=== PATIENT | female | born 1965 | race Caucasian/White ===

== ENCOUNTER → 2016-06-30 | Outpatient (CLI) | payer MEDICARE, MEDICAID ==
[~2016-06-30] MED LIST: ADIPEX-P37.5 MG PO; AMITRIPTYLINE 225 MG PO; BACLOFEN10 MG PO; CALCIUM WITH VI1 TAB PO; CYMBALTA30 MG PO; DULOXETINE 30MG30 MG FT; DULOXETINE 30MG30 MG PO; EFFEXOR XR150 MG PO; HYDROCODONE BIT1 T39 PO; HYDROCODONE-APA1 TA1 PO; KLONOPIN0.5 M1 PO; LAMICTAL100 MG PO; LAMOTRIGINE100 M1 PO; LEXAPRO 20 MG T20 MG PO; MOBIC15 MG PO; NORCO 325 MG-51 TAB PO; TRAMADOL 50MG T50 M1 PO; VENLAFAXINE HCL50 MG PO; VISTARIL25 MG PO; VITAMIN B125000 MCG PO; VOLTAREN50 MG PO; ZYRTEC10 M3 PO
[2016-06-30 09:36] LABS: HEMOGLOBIN 16.3 g/dL (12.2-16.2); LYMPH # 4.5 K/mm3 (0.7-4.5); LYMPH % 33.5 % (10-50.0)
[2016-06-30 10:01] LABS: BUN 13 mg/dL (7-18)
[2016-06-30 10:04] LABS: GFR (ESTIMATED) 76 ML/MIN (59-)
== END ==
LOC: LAB 09:07
PROVIDERS: Nurse Practitioner Family
DX: N39.0 Urinary tract infection, site not specified (principal)

== ENCOUNTER → 2017-01-27 | Outpatient (CLI) | payer MEDICARE, MEDICAID ==
[~2017-01-27] MED LIST changes: +BISOPROLOL FUMA1 TA3 PO; +FLECTOR1 EACH TD
--- NOTE | 2017-01-27 14:53 | RADIOLOGY REPORT PS360 ---
[id number] VIEWS HISTORY: CHRONIC RT SHOULDER PAIN ORDERING PHYSICIAN: CUCA MCLAUGHLIN MD PATIENT AGE: 51 years COMPARISON: None FINDINGS: No fracture or dislocation. No lytic or blastic change. There is normal mineralization. The joint spaces are well-preserved. No significant degenerative/arthritic changes. No erosive changes evident. No significant subacromial stenosis IMPRESSION: Negative right shoulder
== END ==
LOC: RAD 12:27
DX: M25.511 Pain in right shoulder (principal)

== ENCOUNTER → 2017-02-22 | Outpatient (CLI) | payer MEDICARE, MEDICAID ==
[2017-02-22 14:29] LABS: AMPHETAMINES/METAMPHETAMINES NEGATIVE ng/mL (<1000)
[2017-03-03 08:46] LABS: Codeine Negative (Cutoff=100); Hydrocodone Positive (.); Hydromorphone Positive (.); Morphine Negative (Cutoff=100); Opiates Positive (.)
== END ==
LOC: LAB 12:01
PROVIDERS: Anesthesiology
DX: Z79.899 Other long term (current) drug therapy (principal)

== ENCOUNTER → 2017-03-16 | Outpatient (CLI) | payer MEDICARE, MEDICAID ==
--- NOTE | 2017-03-17 07:20 | RADIOLOGY REPORT PS360 ---
MRI-C-SPINE W/O, MRI-3D RENDERING/MYELOGRAM HISTORY: Right-sided neck pain and numbness, right shoulder pain NECK PAIN ORDERING PHYSICIAN: FLORIAN PRUETT CRNA PATIENT AGE: 51 years COMPARISON: 02/26/2014 TECHNIQUE: Standard multiplanar multiecho sequences are performed without contrast. 3-D MIP and myelographic images are also rendered and reviewed FINDINGS: There is straightening of the cervical lordosis with normal alignment. The craniocervical junction is unremarkable. There is some nonspecific increased T2 signal within the diane. C2-C3: Unremarkable. C3-C4: Unremarkable. C4-C5: Unremarkable. C5-C6: Degenerative disc disease with broad-based bulging disc slightly eccentric toward the right with bilateral uncovertebral hypertrophy. Canal stenosis is present at this level at 10 mm with bilateral foraminal narrowing right greater than left. Not significantly changed. C6-C7: Degenerative disc disease with bulging disc and uncovertebral hypertrophy. The bulging disc slightly eccentric toward the left. There is bilateral lateral recess and foraminal narrowing greater on the left along with canal stenosis at 10 mm. Probably not significant change compared to the previous exam. The disc at C5-C6 and C6-C7 abuts the cord anteriorly but without cord effacement. IMPRESSION: 1. Degenerative disc disease at C5-C6 with broad-based bulging disc slightly eccentric toward the right with bilateral uncovertebral hypertrophy. Canal stenosis is present at this level at 10 mm with bilateral foraminal narrowing right greater than left. This is not significantly changed. 2. Degenerative disc disease C6-C7 with bulging disc and uncovertebral hypertrophy. The bulging disc slightly eccentric toward the left. There is bilateral lateral recess and foraminal narrowing greater on the left along with canal stenosis at 10 mm. Probably not significant change compared to the previous exam. The disc at C5-C6 and C6-C7 abuts the cord anteriorly but without cord effacement
== END ==
LOC: RAD 09:31
DX: M54.2 Cervicalgia (principal)

== ENCOUNTER → 2017-03-29 | Outpatient (CLI) | payer MEDICARE, MEDICAID ==
[~2017-03-29] MED LIST changes: +BUSPAR 10MG TAB10 MG PO
--- NOTE | 2017-03-29 14:39 | RADIOLOGY REPORT PS360 ---
HIP RT 2-3V W/PELVIS IF PERFOR HISTORY: TRANSIENT RT LEG, RT HIP PAIN ORDERING PHYSICIAN: Yolette Reyes APRN PATIENT AGE: 51 years COMPARISON: None FINDINGS: No fracture or dislocation is evident. No significant degenerative change. No lytic or blastic change. Unremarkable soft tissues There is mild sclerosis of the SI joints. Small bone island is present in the lower aspect of the right femoral neck. Surgical clips noted over the right iliac fossa. IMPRESSION: 1. Negative right hip. 2. Small bone island right femur. 3. Sclerosis of the SI joints consistent with sacroiliitis
--- NOTE | 2017-03-30 08:12 | RADIOLOGY REPORT PS360 ---
MRI-L-SPINE W/O, MRI-3D RENDERING/MYELOGRAM HISTORY: Low back pain with left hip pain and right leg weakness TRANSIENT RT LEG WEAKNESS, LOW BACK PAIN AT MULTIPLE SITES ORDERING PHYSICIAN: Yolette Reyes APRN PATIENT AGE: 51 years COMPARISON: None TECHNIQUE: Standard multiplanar multiecho sequences are performed without contrast. 3-D MIP and myelographic images are also rendered and reviewed FINDINGS: The spinal cord ends at the L1-L2 level. There is normal alignment. Mild degenerative disc disease at T11-T12. Mild degenerative disc disease with minimal central disc protrusion noted at T12-L1 without enhancement. Mild degenerative disc disease L1-L2. L2-L3: Unremarkable. L3-L4: Mild concentric bulging disc along with facet and ligamentum hypertrophy with mild bilateral lateral recess and foraminal narrowing. L4-L5: Bulging disc slightly eccentric towards the left with moderate facet and ligamentum flavum hypertrophy with moderate to severe bilateral lateral recess narrowing and bilateral foraminal narrowing left more severe than right with some impingement upon the L4 nerve roots on both sides left more so than right. There is transverse narrowing of the canal at this level. L5-S1: There is bulging disc with broad-based right paracentral disc protrusion causing mild impingement upon the right S1 nerve root. IMPRESSION: 1. Multilevel lumbar spondylosis with degenerative disc disease and facet arthritic change as detailed above. Please see above for detailed description at each level. 2. Mild concentric bulging disc at L3-L4 along with facet and ligamentum hypertrophy with mild bilateral lateral recess and foraminal narrowing. 3. Bulging disc L4-5 slightly eccentric towards the left with moderate facet and ligamentum flavum hypertrophy with moderate to severe bilateral lateral recess narrowing and bilateral foraminal narrowing left more severe than right with some impingement upon the L4 nerve roots on both sides left more so than right. There is transverse narrowing of the canal at this level. 4. Bulging disc L5-S1 with broad-based right paracentral disc protrusion causing mild impingement upon the right S1 nerve root.
== END ==
LOC: RAD 13:14
DX: R29.898 Other symptoms and signs involving the musculoskeletal system (principal); M25.551 Pain in right hip